=== PATIENT | female | born 1965 | race Caucasian/White ===

== ENCOUNTER 2020-08-09 05:52 | Inpatient (IN) | payer MEDICAID ==
[2020-08-09] VITALS (7 sets, daily range): BP systolic 141–168; BP diastolic 75–96
[~2020-08-09] VITALS: Ht 167.6 cm; Wt 87.6 kg
[~2020-08-09 05:52] MED LIST: BUPROPION HCL150 M2 PO; CALTRATE 600+D31 TAB PO; LEXAPRO10 MG PO; METFORMIN500 M2 PO
--- NOTE | 2020-08-09 16:40 | NUR ---
BEDSIDE REPORT RECEIVED FROM ERINN FROM OR, PT ARRIVED ON UNIT @ 1301 IN BED AND SETTLED IN ROOM, ORIENTED AND GROGGY, C/O ABD PAIN @ 12/08, ISSUE ADDRESSED. NG TUBE IN PLACE TO RIGHT NARE WITH BLOODY DRAINAGE CONTAINING PARTICLES OF MUCUS AND CLOTS, CONNEDTED TO LIS, IV FLUIDS INFUSING TO SITE IN RH, SCD CONNECTED, ICE CHIPS GIVEN REQUESTED/ORDERED, ABDOMINAL BINDER IN PLACE WITH DSD TO ABDOMEN, CIERA DRAIN IN PLACE TO LEFT ABD. ORIENTED TO ROOM AND CALL RUSH, BED LOCKED IN LOWEST POSITION AND CALL RUSH IN REACH.
--- NOTE | 2020-08-09 17:00 | NUR ---
NO DRAINAGE IN CANISTER, NG TUBE CHECKED AND CLOTS WITH MUCUS FOUND TO CLOG TUBE, TUBE IRRIGATED WITH 15CC H2O, CLOTS REMOVED WITH TIP OF SWABS THEN DRAINAGE STARTED FLOWING FREELY.
--- NOTE | 2020-08-09 20:00 | NUR ---
PT LAYING IN BED WITH EYES CLOSED, APPEARS TO BE SLEEPING, APPEARS COMFORTABLE AND IN NO DISTRESS. RESPIRATIONS REGULAR AND UNLABORED. ITEMS REMAIN WITHIN REACH, CALL RUSH REMAINS WITHIN REACH. BED REMAINS LOCKED AND IN LOW POSITION WITH BEDRAILS UP X2. WILL CONTINUE TO MONITOR.
--- NOTE | 2020-08-09 20:00 | NUR ---
INTERMITTENT SUCTION AT 30 DRAWING YELLOWISH/BROWN FLUID WITH SOME DARK BLOOD CLOTS. pT TOLERATING SUCTION WELL.WILL CONTINUE TO MONITOR.
--- NOTE | 2020-08-10 | NUR ---
PT ENCOURAGED TO AMBULATE. PT STATE THAT SHE IS IN WAY TOO MUCH PAIN TO GET UP. NURSE SUGGESTS THAT WE WILL GET HER UP IN THE CHAIR FIRST THING IN THE MORNING. PT AGREES SHE WILL TRY.
[2020-08-10 03:55] VITALS: BP 117/69
--- NOTE | 2020-08-10 04:00 | NUR ---
PT RESTING IN BED, NO SIGNS OF DISTRESS NOTED, RESP EVEN AND UNLABORED. PT VOICES NO NEEDS OR COMPLAINTS AT THIS TIME. CALL LIGHT IN REACH, CONTINUE TO MONITOR.
[2020-08-10 05:09] LABS: HEMATOCRIT 36.4 % (37.0-47.0); HEMOGLOBIN 11.8 g/dl (12.0-16.0); IMMATURE GRANULOCYTES 0.6 % (0.0-5.0); MEAN CELL VOLUME 86.7 fL CALC (80.0-100.0); MEAN CORPUSCULAR HGB 28.1 pG CALC (26.0-32.0); MEAN CORPUSCULAR HGB CONC 32.4 g/dL CAL (32.0-36.0); NEUT# 16.7 thou/uL (2.00-7.15); RED BLOOD COUNT 4.2 mill/uL (4.20-5.60); RED CELL DISTRI WIDTH 15.7 % (11.5-15.5)
[2020-08-10 05:23] LABS: ANION GAP 9 (6-22 (CALC)); BUN 10 mg/dL (7-17); BUN/CREATININE RATIO 18 (12-20 (CALC)); CARBON DIOXIDE 24 mmol/l (22-30); CHLORIDE 108 mmol/l (95-108); CREATININE 0.6 mg/dL (0.5-1.0); GFR > 60 ML/MIN (>=60 (CALC)); GFR FOR AFR.AMER. > 60 ML/MIN (>=60 (CALC)); SODIUM 137 mmol/l (137-146)
--- NOTE | 2020-08-10 05:50 | NUR ---
NOTE BLOOD RISING UP IN PTS EG TUBE. INTERMITENT SUCTION SET AT 30. CALLED DR JEFFRIES AND ADVISED HIM THAT THERE SEEMED TO BE A CONSTANT SUCTION OF BLOOD IN PTS EG TUBE. ADVISED DR THIS MORNING HGB WAS 11.8. DR ORDER 50CC OF ICE WATER TO BE ADMINISTERED VIA NG TUBE. PROCEEDED WITH ORDERS. TURNED OFF PUMP AND VERIFIED PLACEMENT OF TUBE WITH 30 CC OF AIR. ADMINISTERED 50 CC OF ICE WATER. MONITORED PT FOR 15 MINUTES AND RESTARTED PUMP ON INTERMITTENT SUCTION AT A RATE OF 30. PT TOLERATED PROCEDURE WELL AND IS RESTING.WILL CONTINUE TO MONITOR.
--- NOTE | 2020-08-10 07:15 | NUR ---
REPORT RECEIVED FROM HENRIQUE AMARO
[2020-08-10 08:28] VITALS: BP 144/75
--- NOTE | 2020-08-10 08:30 | NUR ---
PT RESTING IN SEMI FOWLERS POSITION,A&O X3;VS OBTAINED AND ASSESSMENT COMPLETED;PT REPORTS ABDOMINAL PAIN RATING 10/10 ON THE PAIN SCALE AND REQUESTS PRN PAIN MEDICATION;PT TO BE MEDICATED WITH PRN DILAUDID 1MG SLOW IVP PER ORDER;PT POD #1 EXPLORATIVE LAPROSCOPY CONVERTED TO LAPAROTOMY AND SMALL BOWEL RESECTION;RESPIRATIONS EVEN AND UNLABORED ON O2 @ 2L VIA NC,DIMINISHED LUNG SOUNDS;I.S. PROVIDED AND PT EDUCATED ON USE,ENCOURAGED USE 10X PER HOUR.GOAL 100;NGT NOTED TO RIGHT NARE AND PLACEMENT CHECKED VIA ASCULATION, DRAINING DARK FLUID TO LCS PER ORDER;ABDOMEN DISTENDED/SOFT ON PALPATION AND HYPOACTIVE IN ALL 4 QUADRANTS;DRESSING TO ABD CDI WITH ABDOMINAL BINDER IN PLACE;CIERA DRAIN NOTED WITH SCANT AMOUNTS OF BLOODY DRAINAGE;DELCID CATHETER DRAINING DARK URINE TO GRAVITY;#20G TO RIGHT HAND INFUSING LR @ 150ML/HR,SITE APPEARS HEALTHY;SCD'S IN PLACE;ACCUCHECK 120, NO COVERAGE NEEDED;PT EDUCATED ON NPO DIET AND VERBALIZES UNDERSTANDING;PT ASSISTED WITH REPOSITIONING TO RECLINER AT THIS TIME AND TOLERATED WELL;PT DENIES ANY ADDITIONAL NEEDS AND IS ENCOURAGED TO CALL FOR ASSISTANCE IF NEEDED;FALL PRECAUTIONS REMAIN IN PLACE WITH CALL LIGHT IN REACH;WILL CONTINUE TO MONITOR
--- NOTE | 2020-08-10 09:11 | NUR ---
AT BEDSIDE DISCUSSING POC.
--- NOTE | 2020-08-10 09:40 | NUR ---
AT BEDSIDE DISCUSSING POC.
[2020-08-10 10:40] VITALS: BP 135/75
--- NOTE | 2020-08-10 11:00 | NUR ---
PT OOB RESTING IN RECLINER;RESPIRATIONS REMAIN EVEN AND UNLABORED ON O2 @ 2L VIA NC;PT DENIES ANY CURRENT PAIN OR NEEDS;IV SITE INFUSING NS @ 100ML/HR,SITE APPEARS HEALTHY;ABDOMINAL BINDER AND DRESSING CDI;CIERA DRAIN PATENT;NGT CONTINUES TO LCS;DELCID CATHETER DRAINING TO GRAVITY WITH EASE;PT DENIES ANY ADDITIONAL NEEDS;ENCOURAGED TO CALL FOR ASSISTANCE IF NEEDED;FALL PRECAUTIONS IN PLACE WITH CALL LIGHT IN REACH;WILL CONTINUE TO MONITOR
--- NOTE | 2020-08-10 12:09 | NUR ---
PT AMBULATED THE HALLWAY ATT THIS TIME WITH STEADY GAIT AND X1 ASSIST, PT TOLERATED WALK WELL;PT RE-POSITIONED INTO BED AT THIS TIME;SCHEDULED TORADOL AND ABX PROVIDED PER ORDER;ACCUCHECK 114, NO COVERAGE NEEDED;ICE CHIPS PROVIDED PER REQUEST;PT DENIES ANY ADDITIONAL NEEDS;CALL LIGHT IN REACH;WILL CONTINUE TO MONITOR
[2020-08-10 14:49] VITALS: BP 156/81
--- NOTE | 2020-08-10 15:30 | NUR ---
PT RESTING IN SEMI FOWLERS POSITION,ASSISTED WITH AMBULATION THROUGH THE HALLWAY ONCE AGAIN AND PT TOLERATED WELL;RE-POSITIONED INTO RECLINER PER REQUEST;RESPIRATIONS REMAIN EVEN AND UNLABORED ON O2 @ 2L VIA NC;PT DENIES ANY CURRENT PAIN OR DISCOMFORTS;NGT CONTINUES TO RUN TO LCS THROUGH RIGHT NARE;ABBOMINAL BINDER AND DRESSINGS CDI;CIERA DRAIN PATENT;DELCID CATHETER CONTINUES TO DRAIN WITH EASE TO GRAVITY;#20G TO RIGHT HAND INFUSING LR @ 100ML/HR;PT ENCOURAGED TO CALL FOR ASSISTANCE IF NEEDED;CALL LIGHT IN REACH;WILL CONTINUE TO MONITOR
[2020-08-10 19:00] VITALS: BP 168/89
--- NOTE | 2020-08-10 20:00 | NUR ---
PHYSICAL ASSESMENT COMPLETE. SCHEDULED MEDICATIONS AND PRN MEDICATION ADMINISTERED, SEE E-MAR. DISCUSSED THE NEED TO AMBULATE PO DAY 1. PT AGREED TO AMBULATE. PT DENIES ANY NEEDS AT THIS TIME. PLAN OF CARE REVIEWED, PT DENIES QUESTIONS, VERBALIZES UNDERSTANDING. ITEMS WITHIN REACH, BED LOCKED IN LOW POSITION W/ BEDRAILS UP X2. CALL RUSH WITHIN REACH, AGREES TO CALL PRN.
--- NOTE | 2020-08-10 20:09 | NUR ---
PT WAS WALKED DOWN THE HOUSER BUT CLAIMED SHE WAS IN A TERRIFIC AMOUNT OF PAIN. ADMINISTERED PAIN MEDICATION. PT COUGHING UP CLEAR SPUDUM. LUNG SOUNDS SLIGHTLY DIMINISHED. ENCOURAGED USE OF IS. WILL CONTINUE MONITOR.
[2020-08-10 23:30] VITALS: BP 160/84
--- NOTE | 2020-08-11 | NUR ---
PT REQUESTING PAIN MEDICATION. ADMINISTERED PRN MEDICATION. DELCID BAG LEAKING. REPLACED DELCID BAG. REPOSITIONED PT IN BED. NO FURTHER NEEDS. WILL CONTINUE TO MONITOR.
[2020-08-11 03:26] VITALS: BP 137/76
--- NOTE | 2020-08-11 03:56 | NUR ---
PT LAYING IN BED WITH EYES CLOSED, APPEARS TO BE SLEEPING, APPEARS COMFORTABLE AND IN NO DISTRESS. RESPIRATIONS REGULAR AND UNLABORED. NASAL GASTRIC TUBE RUNNING ON CONTINUOUS LOW. DELCID IN PLACE COLLECTING YELLOWISH BROWN URINE. CIERA DRAIN IN PLACE LEFT ABDOMIAL. ITEMS REMAIN WITHIN REACH, CALL [facility] REMAINS WITHIN REACH. BED REMAINS LOCKED AND IN LOW POSITION WITH BEDRAILS UP X2. WILL CONTINUE TO MONITOR.
[2020-08-11 05:28] LABS: HEMATOCRIT 32.6 % (37.0-47.0); HEMOGLOBIN 10.4 g/dl (12.0-16.0); MEAN CELL VOLUME 87.6 fL CALC (80.0-100.0); MEAN CORPUSCULAR HGB CONC 31.9 g/dL CAL (32.0-36.0); RED BLOOD COUNT 3.72 mill/uL (4.20-5.60)
[2020-08-11 05:58] LABS: ANION GAP 8 (6-22 (CALC)); BUN 11 mg/dL (7-17); BUN/CREATININE RATIO 20 (12-20 (CALC)); CARBON DIOXIDE 25 mmol/l (22-30); CHLORIDE 107 mmol/l (95-108); CREATININE 0.6 mg/dL (0.5-1.0); GFR > 60 ML/MIN (>=60 (CALC)); GFR FOR AFR.AMER. > 60 ML/MIN (>=60 (CALC)); POTASSIUM 3.6 mmol/l (3.5-5.1); SODIUM 137 mmol/l (137-146)
[2020-08-11 06:19] LABS: ALBUMIN 2.7 g/dL (3.2-5.0); ALKALINE PHOSPHATASE 158 u/l (38-126); BILIRUBIN, TOTAL 0.9 mg/dL (0.0-1.4); SGOT/AST 187 u/l (14-36); TOTAL PROTEIN 5.2 g/dL (6.3-8.2)
[2020-08-11 07:30] VITALS: BP 151/82
--- NOTE | 2020-08-11 07:30 | NUR ---
PATIENT LAYING IN BED ALERT AND ORIENTED AT THIS TIME X 3 SIDERAILS ARE UP X 2 CALL LIGHT IS WITHIN REACH. PATIENT PRESENTS WITH NG TUBE PLACE AND DRAINING DARK DRAINAGE AT THIS TIME. NG TUBE CHECKED FOR PLACEMENT AND 30CC OF AIR PLACED AND PLACEMENT CONFIRMED. NG HOOKED BACK TO SUCTION AT THIS TIME INTERMITTENT(LOW). PATIENT DRESSING REMOVE TO VIEW INCISIONAL LINE WHICH IS WELL APPROXIMATED AND VALENTE ARE INTACT. DRESSING REMAINS DRY AND BINDER PLACED BACK ON. CIERA DRAIN NOTED ON LEFT ABDOMINAL WALL AND DRAINING SMALL AMOUNT OF BLOODY DRAINAGE AT THIS TIME. PATIENT DOES PRESENT A MOIST COUGH WITH THICK WHITE SPUTUM NOTED. PATIETN ENCOURAGE TO CONTINUE USING INSENTIVE SPIROMETER AND PATIENT DOES DEMONSTRATE CORRECT USAGE. DELCID IS PATENT AND DRAING DARK SEDIMENT URINE AT THIS TIME. PATIENT DOES HAVE SCD'S ON. CALL LIGHT IS WITHIN REACH. SEE CARE PROGRAM RESIDENT INTERVENTIONS.
--- NOTE | 2020-08-11 11:02 | NUR ---
PATIENT UP IN CHAIR AT THIS TIME. 1MG OF HYDROMORPHONE GIVNE FOR A PAIN LEVEL OF 5 OUT OF THE PAIN SCALE OF 0-10. WILL CONTINUE TO MONITOR.
--- NOTE | 2020-08-11 12:05 | NUR ---
PATIENT SITTING UP IN CHAIR AT THIS TIME STATES HER PAIN LEVEL IS ONLY A 3 OUT OF A PAIN SCALE OF 0-10. PATIENT STATED SHE FEELS MUCH BETTER AND IS PASSING GAS. NG REMAINS IN PLACE AND IS ON INTERMITTEN SUCTIONING, DELCID REMAINS PATENT AND DRAINING DARK COLOR SEDIMENT URINE. CALL LIGHT IS WITHIN REACH. DRESSING DRY AND INTACT AND BINDER IN PLACE.
--- NOTE | 2020-08-11 13:15 | NUR ---
DR. JEFFRIES IN TO SEE PATIENT AT THIS TIME. NG TUBE REMOVED BY DR. JEFFRIES AND DRESSING REMOVED AT THIS TIME. PATIENT HAS 39 INCISIONAL VALENTE AND 2 VALENTE ON LEFT SIDE OF INCISION AT LAP SITE. PATIENT INCISIONAL LINE APPROXIMATE AND NO DRAINAGE NOTED. DRY ABD PADS APPLIED AND TAPED WITH PAPER TAPE. CIERA DRAIN REMAINS PATENT AT THIS TIME. DELCID CATH REMOVED AT THIS THIS TIME AND PATIENT UP WALKING. PATIENT WILL CONTINUE TO BE MONITORED.
--- NOTE | 2020-08-11 13:45 | NUR ---
PATIENT DID VOID 100ML OF URINE AT THIS TIME. THIS IS THE FIRST VOID AFTER THE REMOVEAL OF THE DELCID CATH.
--- NOTE | 2020-08-11 14:30 | NUR ---
PATIENT UP AND WALKING IN HOUSER AT THIS TIME. PATIENT PASSING GAS AND STATES "I'M FEELING MUCH BETTER". PATIENT WILL CONTINUE TO BE MONITORED.
--- NOTE | 2020-08-11 16:10 | NUR ---
EHSAN RESTING IN BED AT THIS TIME. PATIENT STATES HER PAIN IS A 2 CURRENTLY OUT OF THE PAIN SCALE OF 0-10. SIDERAILS ARE UP X 2 CALL LIGHT WITHIN REACH TELE REMAINS ON AND BEING MONITORED BY ED. DRESSING DRY AND INTACT. CIERA DRAIN DRAINING BLOODY DRAINAGE AT THIS TIME. WILL CONTINUE TO MONITOR.
--- NOTE | 2020-08-11 16:51 | NUR ---
PATIENT MEDICATED WITH 1MG OF DILAUDID AT THIS TIME FOR ABDOMINAL PAIN. PATIENT STATES HER PAIN IS A 7 OUT OF PAIN SCALE OF 0-10. PATIENTS CIERA DRAIN EMPTIED AT THIS TIME AND 50ML OF BLOODY DRAINAGE NOTED. SIDERAILS ARE UP CALL LIGHT WITHIN REACH.
[2020-08-11 19:50] VITALS: BP 139/81
--- NOTE | 2020-08-11 20:00 | NUR ---
RECEIVIED REPORT FROM THAIS DUENAS. PHYSICAL ASSESMENT COMPLETE. PT CURRENTLY DENIES PAIN OR DISCOMFORT. SCHEDULED MEDICATIONS AND PRN MEDICATION ADMINISTERED, SEE E-MAR. PT DENIES ANY NEEDS AT THIS TIME. PLAN OF CARE REVIEWED, PT DENIES QUESTIONS, VERBALIZES UNDERSTANDING. ITEMS WITHIN REACH, BED LOCKED IN LOW POSITION W/ BEDRAILS UP X2. CALL [facility] WITHIN REACH, AGREES TO CALL PRN.
[2020-08-12 04:00] VITALS: BP 146/81
--- NOTE | 2020-08-12 04:12 | NUR ---
PT C/O OF INSOMNIA. NO SIGNS OF DISTRESS NOTED, RESP EVEN AND UNLABORED. PT VOICES NO NEEDS OR COMPLAINTS AT THIS TIME. CALL LIGHT IN REACH, CONTINUE TO MONITOR.
[2020-08-12 05:31] LABS: HEMATOCRIT 35.3 % (37.0-47.0); HEMOGLOBIN 11.2 g/dl (12.0-16.0); MEAN CELL VOLUME 87.4 fL CALC (80.0-100.0); MEAN CORPUSCULAR HGB 27.7 pG CALC (26.0-32.0); MEAN CORPUSCULAR HGB CONC 31.7 g/dL CAL (32.0-36.0); NEUT# 5.85 thou/uL (2.00-7.15); RED BLOOD COUNT 4.04 mill/uL (4.20-5.60); RED CELL DISTRI WIDTH 15.6 % (11.5-15.5)
[2020-08-12 06:01] LABS: ALBUMIN 3.1 g/dL (3.2-5.0); ANION GAP 9 (6-22 (CALC)); BUN 6 mg/dL (7-17); BUN/CREATININE RATIO 12 (12-20 (CALC)); CARBON DIOXIDE 26 mmol/l (22-30); CHLORIDE 105 mmol/l (95-108); CREATININE 0.5 mg/dL (0.5-1.0); GFR > 60 ML/MIN (>=60 (CALC)); GFR FOR AFR.AMER. > 60 ML/MIN (>=60 (CALC)); POTASSIUM 3.4 mmol/l (3.5-5.1); SODIUM 137 mmol/l (137-146); TOTAL PROTEIN 5.8 g/dL (6.3-8.2)
[2020-08-12 06:27] LABS: ALKALINE PHOSPHATASE 345 u/l (38-126); BILIRUBIN, TOTAL 1.7 mg/dL (0.0-1.4); SGOT/AST 345 u/l (14-36)
--- NOTE | 2020-08-12 07:00 | NUR ---
REPORT RECEIVED FROM DENNY
[2020-08-12 08:00] VITALS: BP 166/83
--- NOTE | 2020-08-12 08:30 | NUR ---
PT RESTING IN RECLINER.A&O X3;VS OBTAINED AND ASSESSMENT COMPLETED;PT POD #3, PT REPORTS ABDOMINAL PAIN RATING 7/10 ON THE PAIN SCALE AND REQUESTS PAIN MEDICATION,PT MEDICATED WITH PRN DILAUDID 1MG SLOW IVP;RESPIRATIONS EVEN AND UNLABORED ON RA,CLEAR LUNG SOUNDS;.I.S. AT BEDSIDE AND PT DEMONSTRATED USE, GOAL 1500 BUT PT ONLY ABLE TO PROVIDED 1000 AT THIS TIME;ENCOURAGED USE 10X PER HOUR;ABDOMEN DISTENDED/SOFT ON PALPATION AND ACTIVE IN ALL 4 QUADRANTS;ABDOMINAL BINDER IN PLACE AND DRESSINGS CHANGED AT THIS TIME;VALENTE NOTED TO BE INTACT;CIERA DRAIN TO LEFT QUADRANT DRAINING MINIMAL BLOODY FLUID;STRONG PEDAL PULSES;#20G TO RH INFUSING DEXTROSE @ 125ML/HR PER ORDER,SITE APPPEARS HEALTHY AND POTASSIUM STARTED AT THIS TIME;ACCUCHECK 121, NO COVERAGE NEEDED;NPO DIET REINFORCED AND PT VERBALIZES UNDERSTANDING;PT DENIES ANY ADDITIONAL NEEDS AND IS ENCOURAGED TO CALL FOR ASSISTANCE IF NEEDED;FALL PRECAUTIONS IN PLACE WITH CALL LIGHT IN REACH;WILL CONTINUE TO MONITOR
--- NOTE | 2020-08-12 09:48 | NUR ---
AT BEDSIDE DISCUSSING POC.
--- NOTE | 2020-08-12 12:20 | NUR ---
PT OOB RESTING IN RECLINER;RESPIRATIONS EVEN AND UNLABORED ON RA;PT DENIES ANY CURRENT PAIN OR DISCOMFORTS;IV FLUIDS INFUSING WITH EASE PER ORDER AND ABX STARTED AT THIS TIME;ACCUCHECK 97, NO COVERAGE NEEDED;ABDOMINAL BINDER AND DRESSINGS CDI;CIERA DRAIN PATENT;PT DENIES ANY ADDITIONAL NEEDS;ENCOURAGED TO CALL FOR ASSISTANCE IF NEEDED;CALL LIGHT IN REACH;WILL CONTINUE TO MONITOR
[2020-08-12 13:00] VITALS: BP 156/85
--- NOTE | 2020-08-12 13:11 | NUR ---
PT AMBULATED DOWN X2 HALLWAYS WITH A STEADY GAIT AND X1 PERSON ASSIST.
--- NOTE | 2020-08-12 14:25 | NUR ---
AT BEDSIDE DISCUSSING POC.
[2020-08-12 14:50] VITALS: BP 153/86
--- NOTE | 2020-08-12 16:10 | NUR ---
PT RESTING IN SEMI FOWLERS POSITION;RESPIRATIONS EVEN AND UNLABORED ON RA;PT DENIES ANY CURRENT PAIN OR DISCOMFROTS;ABDOMINAL BINDER AND DRESSINGS CDI;CIERA TO LEFT QUADRANT PATENT;#20G TO RIGHT HAND INFUSING NS @ 75ML/HR PER ORDER;PT ASSISTED TO BEDSIDE COMMODE AND VOIDED 300CC OF CLEAR YELLOW URINE;JELLO PROVIDED PER REQUEST;PT DENIES ANY ADDITIONAL NEEDS AT THIS TIME AND IS ENCOURAGED TO CALL FOR ASSISTANCE IF NEEDED;CALL LIGHT IN REACH;WILL CONTINUE TO MONTIOR
[2020-08-12 19:00] VITALS: BP 151/77
--- NOTE | 2020-08-12 20:00 | NUR ---
RECEIVED REPORT FROM ROBINA, PATIENT RESTING IN BED, WITH ONGOING IV D5W ON RT HAND G20 @ 75CC/HR INFUSING WELL, PATIENT POST OP DAY 3, DRESSING CDI WITH ABDOMINAL BINDER, CIERA DRAIN ON LEFT ABDOMEN, PATIENT WEARING SCD, ENCOURAGED THE USE OF SPIROMETER AND PERFORMED INSPIRATORY VOLUME AT 1500, PATIENT ASSISTED TO BED SIDE COMODE, AND ASSISTED BACK, CALL LIGHT AT REACH.
--- NOTE | 2020-08-13 | NUR ---
PATIENT AWAKE AT THIS TIME, ACCUCHEK 109, NO COVERAGE GIVEN, CALL LIGHT AT EACH.
--- NOTE | 2020-08-13 01:55 | NUR ---
IV CATHETER DISLODGE, NEW IV REINSERTED ON RT WRIST G 22, PATENT FLUSHES WELL.
[2020-08-13 04:00] VITALS: BP 161/79
--- NOTE | 2020-08-13 04:43 | NUR ---
PATIENT RESTING IN BED, AWAKE AT THIS TIME, STILL HAVING PAIN ON ABDOMEN, REFUSED TO TAKE DILAUDID STATED WILL WAIT FOR TORADOL, BREATHING UNLABORED, WILL FOLLOW UP.
--- NOTE | 2020-08-13 05:15 | NUR ---
PATIENT C/O ABDOMINAL PAIN PS 5/10 DUE TORADOL GIVEN, EMPTIED CIERA DRAIN, SEROSANGUINEOUS IN COLOR 12CC.PATIENT WENT BACK TO SLEEP WITH EYES CLSOED, CALL LIGHT AT REACH.
[2020-08-13 06:11] LABS: HEMATOCRIT 33.5 % (37.0-47.0); HEMOGLOBIN 10.9 g/dl (12.0-16.0); IMMATURE GRANULOCYTES 0.5 % (0.0-5.0); MEAN CELL VOLUME 85.7 fL CALC (80.0-100.0); MEAN CORPUSCULAR HGB 27.9 pG CALC (26.0-32.0); MEAN CORPUSCULAR HGB CONC 32.5 g/dL CAL (32.0-36.0); NEUT# 6.37 thou/uL (2.00-7.15); RED BLOOD COUNT 3.91 mill/uL (4.20-5.60); RED CELL DISTRI WIDTH 15.7 % (11.5-15.5)
[2020-08-13 06:33] LABS: ALKALINE PHOSPHATASE 245 u/l (38-126); ANION GAP 9 (6-22 (CALC)); BILIRUBIN, TOTAL 1.1 mg/dL (0.0-1.4); BUN 3 mg/dL (7-17); BUN/CREATININE RATIO 7 (12-20 (CALC)); CARBON DIOXIDE 25 mmol/l (22-30); CHLORIDE 108 mmol/l (95-108); CREATININE 0.5 mg/dL (0.5-1.0); GFR > 60 ML/MIN (>=60 (CALC)); GFR FOR AFR.AMER. > 60 ML/MIN (>=60 (CALC)); POTASSIUM 3.2 mmol/l (3.5-5.1); SODIUM 138 mmol/l (137-146); TOTAL PROTEIN 5.6 g/dL (6.3-8.2)
[2020-08-13 06:43] LABS: SGOT/AST 70 u/l (14-36)
--- NOTE | 2020-08-13 07:00 | NUR ---
REPORT RECEIVED FROM HENRIQUE MCALLISTER
--- NOTE | 2020-08-13 07:50 | NUR ---
PT OOB RESTING IN RECLINER,A&O X3;VS OBTAINED AND ASSESSMENT COMPLETED;PT DENIES ANY CURRENT PAIN OR DISCOMFORTS,PAIN SCALE AND REPORTING EDUCATED;PT POD #4;RESPIRATIONS EVEN AND UNLABORED ON RA,CLEAR LUNG SOUNDS NOTED WITH NON-PRODUCTIVE COUGH;ENCOURAGED USE OF I.S. AND PT DEMONSTRATED USE, GOAL 1500;ABDOMEN DISTENDED/SOFT ON PALPATION AND ACTIVE IN ALL 4 QUADRANTS;ABDOMINAL BINDER IN PLACE AND DRY DRESSING CHANGED AT THIS TIME;CIERA DRAIN TO LEFT QUADRANT PATENT WITH MINIMAL DRAINAGE NOTED;STRONG PEDAL PULSES;#22G TO RW INFUSING D5W @ 75ML/HR,SITE APPEARS HEALTHY;ACCUCHECK 106, NO COVERAGE NEEDED;PT TOLERATING CLEAR LIQUID DIET WELL;PT DENIES ANY ADDITIONAL NEEDS AT THIS TIME AND IS ENCOURAGED TO CALL FOR ASSISTANCE IF NEEDED;FALL PRECAUTIONS IN PLACE WITH CALL LIGHT IN REACH;WILL CONTINUE TO MONITOR
[2020-08-13 07:53] VITALS: BP 161/90
--- NOTE | 2020-08-13 08:00 | NUR ---
PT EXPRESSES CONCERN REGARDING HAVING HELP AT HOME WHEN D/C, PT TEARFUL;PT RE-ASSURED AND CASE MANAGEMENT NOTIFIED.
--- NOTE | 2020-08-13 09:40 | NUR ---
PT MEDICATED WITH PERCOCET 5/325MG PO PRIOR TO CIERA DRAIN REMOVAL.
--- NOTE | 2020-08-13 09:40 | NUR ---
PT AMBULATING THE HALLWAY WITH A STEADY GAIT AND X1 ASSIST.
--- NOTE | 2020-08-13 10:50 | NUR ---
CIERA DRAIN REMOVED AT THIS TIME PER ORDER AND PT TOLERATED WELL;2X2 AND TEGEDERM APPLIED TO SITE.
--- NOTE | 2020-08-13 11:30 | NUR ---
PT RESTING IN SEMI FOWLERS POSITION WATCHING TV;RESPIRATIONS EVEN AND UNLABORED ON RA;PT DENIES ANY CURRENT PAIN OR DISCOMFORTS;ABDOMINAL BINDER AND DRESSINGS CDI;IV FLUIDS CONTINUE TO RW WITH EASE PER ORDER;PT ENCOURAGED USE OF I.S.;PT DENIES ANY ADDITIONAL NEEDS AND IS ENCOURAGED TO CALL FOR ASSISTANCE IF NEEDED;FALL PRECAUTIONS REMAIN IN PLACE WITH CALL LIGHT IN REACH;WILL CONTINUE TO MONITOR
--- NOTE | 2020-08-13 13:40 | NUR ---
PT AMBULATING THE HALLWAY WITH PHYSICAL THERAPY.
[2020-08-13 15:28] VITALS: BP 142/86
--- NOTE | 2020-08-13 15:40 | NUR ---
PT RESTING IN SEMI FOWLERS POSITION WATCHING TV;RESPIRATIONS EVEN AND UNLABORED ON RA;PT DENIES ANY CURRENT PAIN OR DISCOMFORTS;ABDOMINAL BINDER AND DRESSINGS CDI;PT TOLERATED FULL LIQUID DIET WELL;IV SITE TO RW PATENT;PT ENCOURAGED TO CALL FOR ASSISTANCE IF NEEDED;CALL LIGHT IN REACH;WILL CONTINUE TO MONITOR
--- NOTE | 2020-08-13 16:05 | NUR ---
Patient was seen and treated at bedside. Patient identity verified via full name and . Patient rpeorts soreness on surgical site, and needed min assistance in sitting up from supine position. Patient was able to perform seated exercises and gait training activities using rolling walker. Patient tolerated walking on hallway x 150 ft x 2 rounds using rolling walker and +1 SBA. Patient demonstrates good and steady balance, but has dificulty with sit to stand activities due to soreness on abdominal region. Patient was assisted back into bed and left lying comforbaly in semi-charles position with call button within reach.
[2020-08-13 19:00] VITALS: BP 141/68
--- NOTE | 2020-08-13 20:00 | NUR ---
PT CALLED ASKING FOR POPCYCLE/PROVIDED ORANGE POPCYCLE AVAILABLE. POC DISCUSSED WITH PT ALONG W/ORDERED MEDICATIONS. PT DENIES DILAUDID AT THIS TIME ALTHOUGH PAIN LEVEL REPORTED 5/10 ON PAIN SCALE. ASSESSMENT COMPLETED AT THIS TIME. ABD BINDER REPOSITIONED FOR PATIENT AND I ASSISTED HER TO REPOSITION SELF IN THE BED. PT DEMONSTRATED IS AT THIS TIME MEASURING 1100 ON IS PER BREATH. I ENCOURAGED HER TO CONTINUE USE OF IS WHILE AWAKE/VERBALIZED UNDERSTANDING.
--- NOTE | 2020-08-13 20:25 | NUR ---
PT CALLED FOR ASSISTANCE TO BSC AND BACK TO BED. LARGE PASTY DARK STOOL OUTPUT AT THIS TIME.
--- NOTE | 2020-08-13 20:40 | NUR ---
PT CALLED FOR ASSISTANCE UP TO BSC, LARGE DARK PASTY STOOL OUTPUT ALONG WITH URINE AT THIS TIME. PT ASSISTED BACK TO THE BED. DENIES ANY OTHER NEEDS AT THIS TIME. CALL LIGHT AT SIDE.
--- NOTE | 2020-08-13 21:42 | NUR ---
PT MEDICATED FOR PAIN 8/10 ON PAIN SCALE. PT REPORTS PASSING FLATUS. DISCUSSED WALKING HALLWAY WITH PT, SHE AGREED TO ALLOW PAIN MEDICATION START WORKING AND THEN WE WILL WALK THE HALLWAY. I INSTRUCTED HER TO CALL WHEN SHE IS READY TO WALK AND I WILL ASSIST.
[2020-08-14] VITALS: BP 139/79
--- NOTE | 2020-08-14 00:09 | NUR ---
pt awake on phone and watching tv. she was medicated as order provide for pain 5/10 on pain scale and with iv antibiotic therapy. She reports feeling better that she feels gas has passed. Denies any other needs at this time. call light at side and pt encouraged to call.
--- NOTE | 2020-08-14 03:00 | NUR ---
pt called to ask for ice chips/provided. Denies any other needs at this time. No s/o distress noted.
[2020-08-14 04:00] VITALS: BP 138/73
[2020-08-14 05:22] LABS: HEMOGLOBIN 10.7 g/dl (12.0-16.0); MEAN CELL VOLUME 85.7 fL CALC (80.0-100.0); MEAN CORPUSCULAR HGB 27.8 pG CALC (26.0-32.0); MEAN CORPUSCULAR HGB CONC 32.4 g/dL CAL (32.0-36.0); RED BLOOD COUNT 3.85 mill/uL (4.20-5.60)
[2020-08-14 05:46] LABS: ALBUMIN 2.8 g/dL (3.2-5.0); ALKALINE PHOSPHATASE 169 u/l (38-126); ANION GAP 9 (6-22 (CALC)); BILIRUBIN, TOTAL 0.8 mg/dL (0.0-1.4); BUN 5 mg/dL (7-17); BUN/CREATININE RATIO 8 (12-20 (CALC)); CARBON DIOXIDE 25 mmol/l (22-30); CHLORIDE 108 mmol/l (95-108); CREATININE 0.6 mg/dL (0.5-1.0); GFR > 60 ML/MIN (>=60 (CALC)); GFR FOR AFR.AMER. > 60 ML/MIN (>=60 (CALC)); MAGNESIUM 1.7 mg/dL (1.6-2.3); POTASSIUM 3.5 mmol/l (3.5-5.1); SGOT/AST 28 u/l (14-36); SODIUM 138 mmol/l (137-146); TOTAL PROTEIN 5.3 g/dL (6.3-8.2)
--- NOTE | 2020-08-14 06:22 | NUR ---
PT CALLED TO REPORT IV SITE WAS LEAKING. NEW SITE OBTAINED AT THIS TIME #22 TO . PT ASSISTED WALKING THE HOUSER STATING SHE FEELS LIKE SHE "NEEDS TO MOVE GAS." PT TOLERATED WELL, BUT REPORTS PAIN 8/10 ON PAIN SCALE. PT MEDICATED FOR PAIN AT THIS TIME.
[2020-08-14 07:46] VITALS: BP 158/80
--- NOTE | 2020-08-14 08:28 | NUR ---
SHIFT CHANGE REPORT, PT AWAKE ALERT AND ORIENTED RESTING IN BED, JUST ATE MEAL AND C/O STOMACH FULLNESS, LEAVING UNIT AT THIS TIME FOR PEOCEDURE IN RADIOLOGY, WILL CONTINUE TO MONITOR AND ADDRESS NEEDS.
[2020-08-14] MEDS ORDERED: PERCOCET 5/325M1 TAB PO (08:33)
--- NOTE | 2020-08-14 11:02 | NUR ---
Patient seen and treated today. Patient identififed by full name and date of . Physical Therapy Management: 1. Active range of motion of the UE x 10 repetitions 2. Active range of motion of the LE x 10 repetitions 3. Bed to chair and chair to bed transfer x 2 repetitions. 4. Sit to stand and stand to sit x 2 repetitions. 5. Transfer training 6. Gait training with rolling walker x 60 feet. 7. Fall precautions reviewed. Patient verbalized understanding. Patient went back to bed after physical therapy session.
[2020-08-14] MEDS ORDERED: PROTONIX40 M2 PO (13:38)
--- NOTE | 2020-08-14 14:15 | NUR ---
Discharge instructions given. Patient verbalizes understanding of same. Discharged in stable condition via Wheelchair to Home with family. All belongings sent with pt.
== END 2020-08-14 14:04 | DRG 908 ==
LOC: ORM 05:52 → MS2 13:06
PROVIDERS: Nurse Practitioner; Physician Assistant; ADMIT Surgery; ATTEND Internal Medicine
PROC: 0DB80ZZ Excision of Small Intestine, Open Approach (ICD-10-PCS; principal; 2020-08-09)
PROC: 0DN80ZZ Release Small Intestine, Open Approach (ICD-10-PCS; 2020-08-09)
PROC: 0WJF4ZZ Inspection of Abdominal Wall, Percutaneous Endoscopic Approach (ICD-10-PCS; 2020-08-09)
PROC: 0T788ZZ Dilation of Bilateral Ureters, Via Natural or Artificial Opening Endoscopic (ICD-10-PCS; 2020-08-09)
DX: T81.83XA Persistent postprocedural fistula, initial encounter (principal); K63.2 Fistula of intestine; J98.11 Atelectasis; K66.0 Peritoneal adhesions (postprocedural) (postinfection); E11.9 Type 2 diabetes mellitus without complications; F41.9 Anxiety disorder, unspecified; F17.290 Nicotine dependence, other tobacco product, uncomplicated; Z79.84 Long term (current) use of oral hypoglycemic drugs
CPT/HCPCS: C1769; J0131; J1100; J2710; S0164